=== PATIENT | male | born 1980 ===

== ENCOUNTER 2020-05-09 16:32 | Outpatient (REF) | payer SELFPAY ==
--- NOTE | 2020-05-09 16:26 | SKI_PTH ---
PATIENT: JERO MORILLO LOC: [facility] U#:[id number] AGE/SX: 40/M ROOM: RE05/09/[address]: Nadeem Rubio DO : 1980 BED: DIS: 05/09/2020 SPEC #: [id number] RECD: 05/10/20 12:48 STATUS: HORACIO REQ #: [id number] BRUNA: 05/09/20 16:[address]: Nadeem Rubio DEPT: Surgical Specimen RECD BY: Radha Rubio ENTERED: 05/10/20 12:49 SP TYPE: NUPUR ORTEGA DR: No Local Tissues: 1 - SKIN BIOPSY(SHAVE/PUNCH) 2 - SKIN BIOPSY(SHAVE/PUNCH) Procedures: SKIN LEVEL 4 Comments: [id number]
== END 2020-05-09 16:52 ==
LOC: LBN 16:32
PROVIDERS: Visit Provider Otolaryngology Otolaryngology/Facial Plastic Surgery
DX: D22.5 Melanocytic nevi of trunk (principal); D23.5 Other benign neoplasm of skin of trunk
CPT/HCPCS: 88305